=== PATIENT | female | born 1955 | race Two or more races ===

== ENCOUNTER 2024-03-05 10:34 | Emergency (ER) | payer OTHER ==
[~2024-03-05] VITALS: Ht 162.6 cm; Wt 69.9 kg
[2024-03-05] MEDS ORDERED: ZESTRIL5 MG PO (10:52)
[2024-03-05] MEDS ORDERED: CRESTOR20 MG PO (10:52)
[2024-03-05] MEDS ORDERED: TRIJARDY XR 101 EACH PO (10:52)
[2024-03-05] MEDS ORDERED: NEURONTIN600 M1 PO (10:53)
[2024-03-05 11:42] LABS: HEMOGLOBIN 13.5 g/dL (12.0-15.00); MEAN CELL VOLUME 87.5 fL (80.00-100.00); MEAN CORPUSCULAR HEMOGLOBIN 29.6 pg (27.00-32.0); MEAN CORPUSCULAR HGB CONC 33.9 g/dl (32.0-36.0); PLATELET COUNT 309 K/uL (150-450); RED BLOOD COUNT 4.57 M/uL (4.00-6.00); RED CELL DISTRIBUTION WIDTH 13.5 % (11.5-14.5)
[2024-03-05 11:55] LABS: URINE APPEARANCE Clear; URINE BILIRRUBIN Negative (NEGATIVE); URINE BLOOD Negative; URINE COLOR Yellow; URINE LEUKOCYTE Negative; URINE NITRATE Negative; URINE PROTEIN Negative (NEGATIVE); URINE UROBILINOGEN 0.2 E.U./dl
[2024-03-05 11:59] LABS: URINE BACTERIA 32.7 uL (0.0-1933); URINE EPITHELIAL CELLS 25.1 uL (0.0-38.8); URINE RBC 3.3 uL (0.0-20.8); URINE WBC 4.7 uL (0.0-23.2)
[2024-03-05 12:47] LABS: CALCIUM 9.6 mg/dL (8.5-10.1); CREATININE SERUM 0.8 mg/dL (0.55-1.02); GFR 71.54; POTASSIUM 4.59 mEq/L (3.5-5.1)
[2024-03-05 13:00] LABS: URINE GLUCOSE >=1000 MG/DL (NEGATIVE)
== END 2024-03-05 14:27 | disposition home or self-care (01) ==
LOC: ER 10:35
PROVIDERS: General Practice
DX: N31.9 Neuromuscular dysfunction of bladder, unspecified (principal); R10.2 Pelvic and perineal pain; I10 Essential (primary) hypertension; E11.9 Type 2 diabetes mellitus without complications; Z79.84 Long term (current) use of oral hypoglycemic drugs; Z88.5 Allergy status to narcotic agent